=== PATIENT | female | born 1940 | race African-American/Black ===

== ENCOUNTER 2022-04-13 14:26 | Emergency (ER) | payer SELFPAY ==
[~2022-04-13] VITALS: Ht 152.4 cm; Wt 70.0 kg
[2022-04-13] MEDS ORDERED: IPRATROPIUM BROMIDE (0.02%) 0.5MG/2.5ML NEB HHN STA (14:31)
[2022-04-13] MEDS ORDERED: METHYLPREDNISOLONE SOD SUCC 125 MG/2 ML VIAL IV STA (14:31)
[2022-04-13] MEDS: ALBUTEROL (0.083%) 2.5MG/3ML NEB HHN SCH ×2 (14:50→15:00)
[2022-04-13 14:55] VITALS: BP 143/73
== END 2022-04-13 15:37 | disposition left against medical advice (07) ==
LOC: ER 14:26
DX: R06.02 Shortness of breath (principal); R06.2 Wheezing; R00.0 Tachycardia, unspecified; I10 Essential (primary) hypertension
CPT/HCPCS: 93005; 94640; 99283; Z7610